=== PATIENT | male | born 1970 | race Caucasian/White ===

== ENCOUNTER 2019-03-11 11:38 | Inpatient (IN) | payer OTHER ==
--- NOTE | 2019-03-11 13:32 | PDOC ---
History of Present Illness - General Chief Complaint: Wound Stated Complaint: INFECTION ON LT ELBOW Time Seen by Provider: 03/11/19 12:44 - History of Present Illness Initial Comments: Mr. Otto is a 48 y/o male with PMH of HIV positive and asthma, presenting today with avulsion to the left elbow. Reports that he scraped his elbow on a wall two weeks ago while helping a friend move. He was seen at the [facility] a couple of times over the past two weeks where purulent discharge was drained from the wound. Reports chills diarrhea over the past couple of weeks. No fever, no shortness of breath, no chest pain, no abdominal pain, no urinary symptoms. No blood in the stool. Reports that he has been off of his ARV medications and is unsure of his CD4 count. States that he started on ARV again yesterday. Past visits show CD4 count in the low 300s. Past History - Past Medical History Allergies/Adverse Reactions: Allergies Allergy/AdvReac Type Severity Reaction Status Date / Time codeine [Codeine] AdvReac Verified 03/11/19 11:45 Penicillins AdvReac Verified 03/11/19 11:45 Home Medications: Ambulatory Orders Loratadine [Claritin] 10 mg PO DAILY 10/04/11 Albuterol Sulfate Inhaler - [Ventolin HFA Inhaler -] 1 - 2 inh PO Q6H PRN #1 inhaler 11/27/18 Bictegrav/Emtricit/Tenofov Ala [Biktarvy 50-200-25 mg Tablet] 1 tab PO DAILY # 30 tablet 11/27/18 Pravastatin Sodium 1 tab PO DAILY #30 tablet 11/27/18 Umeclidinium [place] [Incruse Ellipta] 62.5 mcg IH DAILY #1 blst.w.dev 11/27/18 Asenapine Maleate [Saphris] 10 mg SL HS #30 tab.subl 02/19/19 Benztropine Mesylate [Cogentin -] 0.5 mg PO DAILY #30 tablet 02/19/19 Sertraline HCl 100 mg PO AM #60 tablet MDD 2 02/19/19 Zolpidem Tartrate [Ambien] 10 tab PO HS PRN #15 tablet MDD 1 02/19/19 clonazePAM [Klonopin -] 0.5 mg PO BID PRN #20 tablet MDD 1 02/19/19 Clindamycin [Cleocin -] 300 mg PO TID #21 capsule 03/13/19 Anemia: No Asthma: Yes Cancer: No Cardiac Disorders: No CVA: No COPD: No CHF: No Dementia: No Diabetes: No Dialysis: No GI Disorders: No Disorders: No HTN: No Hypercholesterolemia: No Liver Disease: No Psychiatric Problems: Yes Seizures: No Thyroid Disease: No - Surgical History Appendectomy: Yes - Immunization History Immunization Up to Date: Yes - Suicide/Smoking/Psychosocial Hx Smoking Status: No Smoking History: Current every day smoker Have you smoked in the past 12 months: Yes Number of Cigarettes Smoked Daily: 3 If you are a former smoker, when did you quit?: 2014 Cigars Per Day: 0 Information on smoking cessation initiated: No 'Breaking Loose' booklet given: 02/10/12 Hx Alcohol Use: Yes Drug/Substance Use Hx: Yes (COCAINE) Substance Use Type: Alcohol, Cocaine, Marijuana Hx Substance Use Treatment: Yes (while in group home) Review of Systems - Review of Systems Comments:: ROS GENERAL/CONSTITUTIONAL: No fever. Reports chills. No weakness. HEAD, EYES, EARS, NOSE AND THROAT: No change in vision. No ear pain or discharge. No sore throat._ CARDIOVASCULAR: No chest pain or shortness of breath. RESPIRATORY: Denies cough, hemoptysis. GASTROINTESTINAL: No nausea, vomiting, or constipation. Reports mild diarrhea. GENITOURINARY: No dysuria, frequency, or change in urination. MUSCULOSKELETAL: No neck or back pain._ SKIN: Reports left elbow avulsion and erythema. NEUROLOGIC: No headache, vertigo, loss of consciousness, or change in strength/ sensation._ ENDOCRINE: No increased thirst. No abnormal weight change_ HEMATOLOGIC/LYMPHATIC: No anemia, easy bleeding, or history of blood clots._ ALLERGIC/IMMUNOLOGIC: No hives or skin allergy._ = *Physical Exam - Vital Signs Last Vital Signs Temp Pulse Resp BP Pulse Ox 98.4 F 87 18 141/66 100 03/11/19 11:47 03/11/19 11:47 03/11/19 11:47 03/11/19 11:47 03/11/19 11:47 - Physical Exam Comments: PE GENERAL: Awake, alert, and oriented to person/place/time, in no acute distress_ HEAD: No signs of trauma, normocephalic, atraumatic _ EYES: PERRLA, EOMI, sclera anicteric, conjunctiva clear_ ENT: Hearing grossly normal, nares patent, oropharynx clear without exudates. No uvular deviation. Moist mucosa_ NECK: Normal ROM, supple, no lymphadenopathy, JVD, or masses_ LUNGS: No distress, speaks in full sentences, clear to auscultation bilaterally _ HEART: Regular rate and rhythm, normal S1 and S2, no murmurs appreciated, peripheral pulses normal and equal bilaterally._ ABDOMEN: Soft, nontender, normoactive bowel sounds. No guarding, no rebound. No masses_ EXTREMITIES: Left - 1 cm x 0.5 cm abrasion to the left dorsal forearm with surrounding erythema and mild fluctuance/induration. 10 degree ROM extension deficit in left elbow. No tenderness to palpation over the rest of the LUE. No streaking. All four extremities neurovascularly intact with equal strength and sensation bilaterally. NEUROLOGICAL: Cranial nerves II through XII grossly intact. Normal speech, normal gait, no focal sensorimotor deficits _ SKIN: Warm, dry. Erythema surrounding left dorsal aspect of forearm. ED Treatment Course - LABORATORY CBC & Chemistry Diagram: 03/13/19 08:28 03/12/19 06:25 Medical Decision Making - Medical Decision Making 03/11/19 1345 48M with hx of HIV positive presenting with non-healing abrasion over left dorsal proximal forearm. Unsure of CD4 count, has not been taking ARV. Purulent discharge drained at [facility]. Obtain CBC, CMP, EKG, CXR. Plan to admit for IV antibiotics. 03/11/19 14:30 Will start on 1 g vanc and 750 mg levaquin abx. EKG shows NSR 77 bpm, no axis deviation, no ST elevation/depression, QTc 414 ms. 03/11/19 1630 XR of the left elbow shows no bone destruction and no joint effusion. Spoke with the hospitalist who agrees to admit the patient. *DC/Admit/Observation/Transfer Diagnosis at time of Disposition: Cellulitis, Non-healing wound - Discharge Dispostion Disposition: HOME Condition at time of disposition: Improved Decision to Admit order: Yes - Referrals - Patient Instructions - Post Discharge Activity
[2019-03-11] MEDS ORDERED: IBUPROFEN 600 MG TABLET (FP) PO ONE ×2 (14:13→14:47)
[2019-03-11] MEDS ORDERED: VANCOMYCIN 1 GM in D5W (PRE-DOCKED) 1,000 MG/250 ML IVPB ONE (14:30)
--- NOTE | 2019-03-11 14:38 | PDOC ---
Documentation entered by Carlotta Truong SCRIBE, acting as scribe for Nomi Nash MD. Nomi Nash MD: This documentation has been prepared by the Alexi frankel Xhesika, SCRIBE, under my direction and personally reviewed by me in its entirety. I confirm that the documentation accurately reflects all work, treatment, procedures, and medical decision making performed by me. Attending Attestation - Resident Resident Name: Dariusz Fiore - ED Attending Attestation I have performed the following: I have examined & evaluated the patient, The case was reviewed & discussed with the resident, I agree w/resident's findings & plan - HPI HPI: 03/11/19 14:19 The patient is a 48 year old male with a significant PMH of HIV (last CD4 bordering 400), asthma, etoh abuse and cocaine use who presents to the emergency department with 2 weeks of non healing L forearm abrasion. Patient notes he scraped his elbow on the wall while helping a friend move about 2 weeks ago. Pt was seen at [facility] [place] 2d ago where he had abscess I+D and IV abx, they recommended admission but he signed out AMA. He did not scrap picker the antibiotic rx prescribed to him. Pt presented to [facility] today for persistent swelling and chills. At [facility], purulence was noted so he was referred to ED. Patient denies any numbness or tingling of the arm. The patient denies chest pain, shortness of breath, headache and dizziness. Denies fever, cough, nausea, vomiting, diarrhea and constipation. Denies dysuria , frequency, urgency and hematuria. Allergies: codeine, penicillin (unclear reaction) Social history: etoh abuse and cocaine use - Physicial Exam PE: 03/11/19 14:35 Afebrile, vital signs normal Generally well-appearing, lying in stretcher Left upper extremity: There is a superficial 2 cm abrasion dorsally just distal to the elbow, there is soft tissue swelling with warmth and erythema and induration surrounding the dorsal aspect of the elbow, no obvious joint effusion , full range of motion. Healed incision and drainage site on the lateral left elbow, no active drainage or bleeding. Neurovascularly intact distally, full strength. - Medical Decision Making 03/11/19 14:36 48-year-old male HIV noncompliant with medications and immunocompromised presents with left upper extremity cellulitis secondary to infected abrasion. Status post incision and drainage of abscess, incompletely treated with antibiotics. No evidence of sepsis or septic joint at this time. Labs, cultures Elbow x-ray IV antibiotics Admission Heart Score/ECG Review #1 ECG reviewed & interpreted by me at: 13:39 General ECG Interpretation: Sinus Rhythm, Normal Rate (77), Normal Intervals ( qtc 414), No acute ischemic changes
[2019-03-11] MEDS ORDERED: VANCOMYCIN 1 GRAM (PRE-DOCKED) 1,000 MG/250 ML BAG IVPB ONE (14:47)
[2019-03-11 14:56] LABS: BASO % 0.4 % (0-2.0); HEMATOCRIT 38.8 % (35.4-49); HEMOGLOBIN 13.2 GM/dL (11.7-16.9); LYMPH % 36.1 % (8-40); MEAN CELL VOLUME 88.2 fl (80-96); MEAN PLT VOLUME 7.6 fl (7.5-11.1); MONO % 9.1 % (3.8-10.2); NEUT % 50.4 % (42.8-82.8); PLATELET COUNT 249 K/MM3 (134-434); RDW 12.6 % (11.9-15.9); WHITE BLOOD COUNT 6.9 K/mm3 (4.0-10.0)
[2019-03-11 15:26] LABS: ALBUMIN 2.6 g/dl (3.4-5.0); BILIRUBIN,TOTAL 0.2 mg/dL (0.2-1); CALCIUM 7.9 mg/dL (8.5-10.1); CREATININE 0.7 mg/dL (0.55-1.3); POTASSIUM 4.3 mmol/L (3.5-5.1); TOT PROT 6.2 g/dl (6.4-8.2)
--- NOTE | 2019-03-11 16:02 | EKG ---
Test Reason : Blood Pressure : / mmHG Vent. Rate : 077 BPM Atrial Rate : 077 BPM P-R Int : 140 ms QRS Dur : 084 ms QT Int : 366 ms P-R-T Axes : 075 061 047 degrees QTc Int : 414 ms POOR DATA QUALITY, INTERPRETATION MAY BE ADVERSELY AFFECTED NORMAL SINUS RHYTHM NORMAL ECG WHEN COMPARED WITH ECG OF 11-OCT-2017 10:01, NO SIGNIFICANT CHANGE WAS FOUND Confirmed by MD RICHIE, MIHAI ([id number]) on 03/11/2019 4:01:48 PM Referred By: Confirmed By:MIHAI QUIROZ MD
[2019-03-11] MEDS ORDERED: ALBUTEROL SO4 8 GM HFA INHALER IH PRN (17:00)
--- NOTE | 2019-03-11 17:04 | HP ---
CHIEF COMPLAINT: LUE swelling PCP:[facility] HISTORY OF PRESENT ILLNESS: 48 y/o male with PMH of HIV (last cd4 352 hasnt take his HAART medications in 3 weeks), asthma, COPD, extensive cocaine and alcohol abuse presents to the ED with complaints of LUE swelling and pain- patient states that he scraped his elbow about 3-4 weeks ago and then hit it 2 weeks ago and since then has been having off and on pain with swelling in addition to subjective fevers and chills. Patient states that he went to [facility] about a week and a half ago where he got a dose of IV abx (doesn't know which type) but left AMA before being admitted; he then went to the [facility] and they did an I and D two days ago- however he went back today because he was still having some subjective fevers and chills and he was sent here; he denies any nausea/vomiting /diarrhea no sick contacts or recent travel ER course was notable for: (1)vitals and labs wnl (2) left elbow XRAY pending (3)given levaquin/vanco; Recent Travel: denies PAST MEDICAL HISTORY: see above PAST SURGICAL HISTORY: appendectomy; inguinal hernia repair in childhood Social History: Smoking: current everyday smoker 1ppd Alcohol:everyday drinker; drink a 12 pack ppd never gone through withdrawals or been hospitalized Drugs: cocaine and marijuana user- daily Family History: Allergies codeine [Codeine] Adverse Reaction (Verified 03/11/19 11:45) just knows that he is allergic to it Penicillins Adverse Reaction (Verified 03/11/19 11:45) pt states he developed the allergy as a child and just knows he got very sick HOME MEDICATIONS: Home Medications Medication Instructions Recorded Loratadine [Claritin] 10 mg PO DAILY 10/04/11 Albuterol Sulfate Inhaler - 1 - 2 inh PO Q6H PRN #1 inhaler 11/27/18 [Ventolin HFA Inhaler -] Bictegrav/Emtricit/Tenofov Ala 1 tab PO DAILY #30 tablet 11/27/18 [Biktarvy 50-200-25 mg Tablet] Pravastatin Sodium 1 tab PO DAILY #30 tablet 11/27/18 Umeclidinium [place] [Incruse 62.5 mcg IH DAILY #1 blst.w.dev 11/27/18 Ellipta] Asenapine Maleate [Saphris] 10 mg SL HS #30 tab.subl 02/19/19 Benztropine Mesylate [Cogentin -] 0.5 mg PO DAILY #30 tablet 02/19/19 Sertraline HCl 100 mg PO AM #60 tablet MDD 2 02/19/19 Zolpidem Tartrate [Ambien] 10 tab PO HS PRN #15 tablet MDD 1 02/19/19 clonazePAM [Klonopin -] 0.5 mg PO BID PRN #20 tablet MDD 1 02/19/19 REVIEW OF SYSTEMS CONSTITUTIONAL: Present: fevers, chills Absent: , diaphoresis, generalized weakness, malaise, loss of appetite, weight change HEENT: Absent: rhinorrhea, nasal congestion, throat pain, throat swelling, difficulty swallowing, mouth swelling, ear pain, eye pain, visual changes CARDIOVASCULAR: Absent: chest pain, syncope, palpitations, irregular heart rate, lightheadedness , peripheral edema RESPIRATORY: Absent: cough, shortness of breath, dyspnea with exertion, orthopnea, wheezing, stridor, hemoptysis GASTROINTESTINAL: Absent: abdominal pain, abdominal distension, nausea, vomiting, diarrhea, constipation, melena, hematochezia GENITOURINARY: Absent: dysuria, frequency, urgency, hesitancy, hematuria, flank pain, genital pain MUSCULOSKELETAL: Present: joint swelling, myalgia Absent: arthralgia, back pain, neck pain SKIN: Absent: rash, itching, pallor HEMATOLOGIC/IMMUNOLOGIC: Absent: easy bleeding, easy bruising, lymphadenopathy, frequent infections ENDOCRINE: Absent: unexplained weight gain, unexplained weight loss, heat intolerance, cold intolerance NEUROLOGIC: Absent: headache, focal weakness or paresthesias, dizziness, unsteady gait, seizure, mental status changes, bladder or bowel incontinence PSYCHIATRIC: Absent: anxiety, depression, suicidal or homicidal ideation, hallucinations. PHYSICAL EXAMINATION Vital Signs - 24 hr 03/11/19 11:47 Temperature 98.4 F Pulse Rate 87 Respiratory 18 Rate Blood Pressure 141/66 O2 Sat by Pulse 100 Oximetry (%) GENERAL: Awake, alert, and fully oriented, in no acute distress. EYES: PEERLA: EOMI; no scleral icterus NECK: no JVD; no lymphadenopathy. LUNGS:CTA B/L; no rales, rhonchi or wheezing HEART: Regular rate and rhythm, normal S1 and S2 without murmur, rub or gallop. ABDOMEN: Soft, nontender, not distended, normoactive bowel sounds, no guarding, no rebound, no masses. No hepatomegaly or splenomegaly. MUSCULOSKELETAL: Left upper extremity elbow swelling; erythematous slightly tender to touch EXTREMITIES: warm;well-perfused no clubbing/cyanosis or edema NEUROLOGICAL: Cranial nerves II-XII intact. Normal speech. Normal gait. PSYCHIATRIC: Cooperative. Good eye contact. Appropriate mood and affect. SKIN: Warm, dry, normal turgor, no rashes or lesions noted, normal capillary refill. Laboratory Results - last 24 hr 03/11/19 03/11/19 14:40 14:40 WBC 6.9 RBC 4.40 Hgb 13.2 Hct 38.8 MCV 88.2 MCH 30.0 MCHC 34.0 RDW 12.6 Plt Count 249 MPV 7.6 Absolute Neuts (auto) 3.5 Neutrophils % 50.4 D Lymphocytes % 36.1 D Monocytes % 9.1 Eosinophils % 4.0 D Basophils % 0.4 Nucleated RBC % 0 Sodium 142 Potassium 4.3 Chloride 110 H Carbon Dioxide 28 Anion Gap 5 L BUN 10.0 Creatinine 0.7 Est GFR (CKD-EPI)AfAm 128.43 Est GFR (CKD-EPI)NonAf 110.81 Random Glucose 120 H Calcium 7.9 L Total Bilirubin 0.2 AST 24 ALT 37 Alkaline Phosphatase 86 Total Protein 6.2 L Albumin 2.6 L ASSESSMENT/PLAN: 48 y/o male with PMH of HIV (last cd4 352 hasnt take his HAART medications in 3 weeks), asthma, COPD, extensive cocaine and alcohol abuse presents to the ED with complaints of LUE swelling and pain- #LUE swelling and ? cellulitis patient received vanc/levaquin in the ED -elbow XRAY pending -ID consulted -ortho cosulted -tylenol PRN for pain -monitor hemodynamics #COPD not in acute exacerbation currently -will c/w home inhalers -maintain o2 sat between 88-92% #HIV -patients last CD4 was 352 -will continue with HAART therapy -ID consulted #HLD -c/w statin #Bipolar Disorder -will c/w psych medications #Alcohol use patient is not currently withdrawing -will monitor CIWA F/E/N not on fluids monitor electrolytes sodium-controlled diet dvt ppx; scds Problem List - Problem (1) Cellulitis of left upper extremity Code(s): L03.114 - CELLULITIS OF LEFT UPPER LIMB (2) AIDS Code(s): B20 - HUMAN IMMUNODEFICIENCY VIRUS [HIV] DISEASE (3) Asthma Code(s): J45.909 - UNSPECIFIED ASTHMA, UNCOMPLICATED (4) Mental health disorder Code(s): F99 - MENTAL DISORDER, NOT OTHERWISE SPECIFIED Visit type - Emergency Visit Emergency Visit: Yes ED Registration Date: 03/11/19 Care time: The patient presented to the Emergency Department on the above date and was hospitalized for further evaluation of their emergent condition. - New Patient This patient is new to me today: Yes Date on this admission: 03/11/19 - Critical Care Critical Care patient: No ATTENDING PHYSICIAN STATEMENT I saw and evaluated the patient. I reviewed the resident's note and discussed the case with the resident. I agree with the resident's findings and plan as documented. SUBJECTIVE: OBJECTIVE: ASSESSMENT AND PLAN:
--- NOTE | 2019-03-11 17:56 | PN ---
Teaching Attending Note Name of Resident: Emmanuelle Peters ATTENDING PHYSICIAN STATEMENT I saw and evaluated the patient. I reviewed the resident's note and discussed the case with the resident. I agree with the resident's findings and plan as documented. SUBJECTIVE: Complains of pain dorsal aspect of L Arm including elbow, with pain on flexion at elbow joint. Subjective fevers/chills. OBJECTIVE: Afebrile, Hemodnamically stable. Last Vital Signs Temp Pulse Resp BP Pulse Ox 98.4 F 87 18 141/66 99 03/11/19 11:47 03/11/19 11:47 03/11/19 11:47 03/11/19 11:47 03/11/19 15:30 HEENT - Atramatic, Normocephalic Heart - S1, S2, SM Lungs -Clear to auscultation Abdomen - Soft, non-tender. Bowel Sounds normal. Extremities - LEs no edema, no calf tenderness. MS - LUE - dorsal erythema, site of prior I and D draining pus, some elbow tenderness, good ROM about elbow joint. Neuro - AAO x 3. Tone/Power normal all 4 extremities. Laboratory Results - last 24 hr 03/11/19 03/11/19 14:40 14:40 WBC 6.9 RBC 4.40 Hgb 13.2 Hct 38.8 MCV 88.2 MCH 30.0 MCHC 34.0 RDW 12.6 Plt Count 249 MPV 7.6 Absolute Neuts (auto) 3.5 Neutrophils % 50.4 D Lymphocytes % 36.1 D Monocytes % 9.1 Eosinophils % 4.0 D Basophils % 0.4 Nucleated RBC % 0 Sodium 142 Potassium 4.3 Chloride 110 H Carbon Dioxide 28 Anion Gap 5 L BUN 10.0 Creatinine 0.7 Est GFR (CKD-EPI)AfAm 128.43 Est GFR (CKD-EPI)NonAf 110.81 Random Glucose 120 H Calcium 7.9 L Total Bilirubin 0.2 AST 24 ALT 37 Alkaline Phosphatase 86 Total Protein 6.2 L Albumin 2.6 L Current Medications Generic Name Dose Route Start Last Admin Trade Name Freq PRN Reason Stop Dose Admin Acetaminophen 650 mg 03/11/19 16:51 Tylenol - PO Q4H PRN PAIN LEVEL 4 - 6 Albuterol Sulfate 1 - 2 puff 03/11/19 17:00 Ventolin Hfa Inhaler - IH Q6H PRN ASTHMA Atorvastatin Calcium 10 mg 03/11/19 22:00 Lipitor - PO HS DONAVAN Benztropine Mesylate 0.5 mg 03/12/19 10:00 Cogentin - PO DAILY DONAVAN Clonazepam 0.5 mg 03/11/19 17:00 Klonopin - PO BID PRN ANXIETY Loratadine 10 mg 03/12/19 10:00 Claritin - PO DAILY DONAVAN Non-Formulary Medication 10 mg 03/11/19 22:00 Asenapine Maleate [Saphris] SL HS DONAVAN Non-Formulary Medication 1 tab 03/12/19 10:00 Bictegrav/Emtricit/Tenofov Ala PO DAILY DONAVAN Sertraline HCl 100 mg 03/12/19 07:00 Zoloft - PO AM DONAVAN Tiotropium [place] 2 puff 03/12/19 10:00 Spiriva Respimat IH DAILY DONAVAN Zolpidem Tartrate 10 mg 03/11/19 22:00 Ambien - PO HS PRN INSOMNIA Home Medications Medication Instructions Recorded Loratadine [Claritin] 10 mg PO DAILY 10/04/11 Albuterol Sulfate Inhaler - 1 - 2 inh PO Q6H PRN #1 inhaler 11/27/18 [Ventolin HFA Inhaler -] Bictegrav/Emtricit/Tenofov [place] 1 tab PO DAILY #30 tablet 11/27/18 [Biktarvy 50-200-25 mg Tablet] Pravastatin Sodium 1 tab PO DAILY #30 tablet 11/27/18 Umeclidinium [place] [Incruse 62.5 mcg IH DAILY #1 blst.w.dev 11/27/18 Ellipta] Asenapine Maleate [Saphris] 10 mg SL HS #30 tab.subl 02/19/19 Benztropine Mesylate [Cogentin -] 0.5 mg PO DAILY #30 tablet 02/19/19 Sertraline HCl 100 mg PO AM #60 tablet MDD 2 02/19/19 Zolpidem Tartrate [Ambien] 10 tab PO HS PRN #15 tablet MDD 1 02/19/19 clonazePAM [Klonopin -] 0.5 mg PO BID PRN #20 tablet MDD 1 02/19/19 ASSESSMENT AND PLAN: 48 year old male with history of HIV poorly compliant with HAART, Asthma/COPD, Active smoker, Polysubstance Abuse (Alcohol/Cocaine), presents with LUE/Elbow swelling/erythema/tenderness with associated subjective fevers/chills. No nausea /vomiting. Prior I and D at [facility] 2 days ago, comes to [facility] for worsening symptoms. 1. L Elbow/LUE Cellulitis Reports prior I and D 2/ ago at [facility] ED Will cover with Levofloxacin/Vancomycin ID and Orthopedics consulted [facility] - given immunocompromised state and tenderness on palpation of elbow, opinion re: joint involvement will be appreciated). 2. HIV (poorly compliant with HAART ID consulted 3. COPD - Stable, no evidence of acute exacerbation. Albuterol PRN. Continue Incruse Ellipta. 4. HLD - continue Statin. 5. Bipolar Disorder - continue Clonazepam, Sertraline, Saphris, Benztropine, 6. Polysusbstance Abuse (Alcohol/cocaine) No evidence of acute alcohol withdrawal. 7. HLD - continue Statin. 8. Smoker - counselled. Declines Nicotine patch. DVT Px - Heparin SQ
[2019-03-11] MEDS: ACETAMINOPHEN 325 MG TABLET (FP) PO PRN (18:33)
[2019-03-11 20:34] VITALS: BMI 39.1
[2019-03-11] MEDS ORDERED: ZOLPIDEM TARTRATE 5 MG TABLET PO PRN (22:00)
[2019-03-11] MEDS ORDERED: ASENAPINE MALEATE 10 MG SL SCH (22:00)
[2019-03-11] MEDS: HEPARIN NA (PORCINE) 5,000 UNITS/ML 1ML VIAL SQ SCH (22:04)
[2019-03-11] MEDS: ATORVASTATIN CA 10 MG TABLET (FP) PO SCH (22:04)
[2019-03-12] MEDS: SERTRALINE HCL 50 MG TABLET (FP) PO SCH (06:57)
[2019-03-12] MEDS: HEPARIN NA (PORCINE) 5,000 UNITS/ML 1ML VIAL SQ SCH ×3 (06:57→22:29)
[2019-03-12 07:34] LABS: BASO % 0.4 % (0-2.0); EOS % 3.8 % (0-4.5); HEMOGLOBIN 14.1 GM/dL (11.7-16.9); LYMPH % 30.1 % (8-40); MCH 30.2 pg (25.7-33.7); MCHC 34.3 g/dl (32.0-35.9); MONO % 8.3 % (3.8-10.2); NEUT % 57.4 % (42.8-82.8); PLATELET COUNT 274 K/MM3 (134-434); RBC 4.66 M/mm3 (4.00-5.60); RDW 12.5 % (11.9-15.9); WHITE BLOOD COUNT 7.6 K/mm3 (4.0-10.0)
[2019-03-12 07:56] LABS: ALBUMIN 2.5 g/dl (3.4-5.0); BILIRUBIN,TOTAL 0.3 mg/dL (0.2-1); BLOOD UREA NITROGEN 11.7 mg/dL (7-18); CALCIUM 8.1 mg/dL (8.5-10.1); CREATININE 0.7 mg/dL (0.55-1.3); MAGNESIUM 2.2 mg/dL (1.8-2.4); POTASSIUM 4.1 mmol/L (3.5-5.1); TOT PROT 6.4 g/dl (6.4-8.2)
[2019-03-12] MEDS ORDERED: PT OWN MED DRAWER 7, Y5N ONE (09:49)
[2019-03-12] MEDS ORDERED: ALBUTEROL SO4 8 GM HFA INHALER IH PRN (09:56)
[2019-03-12] MEDS: LORATADINE 10 MG TABLET PO SCH (09:57)
[2019-03-12] MEDS ORDERED: PATIENT'S OWN MEDICATION (NON-FORMULARY) (Bictegrav/Emtricit/Tenofov Ala 1 TAB) PO SCH (10:00)
--- NOTE | 2019-03-12 10:49 | PN ---
Progress Note (short form) - Note Progress Note: ID consult dictated imp/reccd 48 yo man history of polysubstance abuse, HIV- cd4 352-recently stopped meds, resumed recently seen in ER twice at [facility] - first time offered admission, left AMA, he was there on Sunday when he reports they did an Incision and Drainage and ordered antibiotics po which he didnot hop picker he came to [facility] yesterday and was sent to the ED reports tetanus vaccination at [facility] ED subjective fever and chills pen allergic reports 50 % improvement with antibiotics overnight soft tissue infection of the left elbow- no signs of joint involvement, no fluctuance to suggest residual abscess would continue iv vancomycin 1500 mg q12h with plans to switch to po clindamycin 300 tid when ready for discharge HIV- continue biktarvy pen allergy noted- Problem List - Problems (1) Cellulitis Code(s): L03.90 - CELLULITIS, UNSPECIFIED Qualifiers: Site of cellulitis: extremity Site of cellulitis of extremity: upper extremity Laterality: left Qualified Code(s): L03.114 - Cellulitis of left upper limb (2) HIV (human immunodeficiency virus infection) Code(s): B20 - HUMAN IMMUNODEFICIENCY VIRUS [HIV] DISEASE (3) Penicillin allergy Code(s): Z88.0 - ALLERGY STATUS TO PENICILLIN
[2019-03-12] MEDS ORDERED: VANCOMYCIN HCL 1,500 MG in DEXTROSE 5%-WATER - 250 ML IVPB SCH ×2 (11:00→11:15)
[2019-03-12] MEDS ORDERED: VANCOMYCIN HCL 1,500 MG in DEXTROSE 5%-WATER - 500 ML IVPB SCH (11:06)
--- NOTE | 2019-03-12 13:50 | PN ---
Teaching Attending Note Name of Resident: Fabricio Dominguez ATTENDING PHYSICIAN STATEMENT I saw and evaluated the patient. I reviewed the resident's note and discussed the case with the resident. I agree with the resident's findings and plan as documented. SUBJECTIVE:Feels improved still c/o pain and tenderness OBJECTIVE: Vital Signs Temperature 98.6 F 03/12/19 09:30 Pulse Rate 84 03/12/19 09:30 Respiratory Rate 18 03/12/19 09:30 Blood Pressure 118/62 03/12/19 09:30 O2 Sat by Pulse Oximetry (%) 98 03/11/19 20:43 Young man not in distress HEENT: Mm moist no anemia NECK: No JVd no Bruit CHEST: CTA B/L CVS: s1S2 R' ABD: Obese non tender EXT: Left elbow swelling redness and erythema, supperfical ulcer no purulent discharge left Elbow joints movement are un restricted. MARINA PORTER: Non focal CBC, BMP 03/12/19 06:25 03/12/19 06:25 Active Medications Acetaminophen (Tylenol -) 650 mg PO Q4H PRN PRN Reason: PAIN LEVEL 4 - 6 Last Admin: 03/11/19 18:33 Dose: 650 mg Albuterol Sulfate (Ventolin Hfa Inhaler -) 1 puff IH Q6H PRN PRN Reason: ASTHMA Atorvastatin Calcium (Lipitor -) 10 mg PO HS [facility] Last Admin: 03/11/19 22:04 Dose: 10 mg Benztropine Mesylate (Cogentin -) 0.5 mg PO DAILY [facility] Clonazepam (Klonopin -) 0.5 mg PO BID PRN PRN Reason: ANXIETY Heparin Sodium (Porcine) (Heparin -) 5,000 unit SQ TID [facility] Last Admin: 03/12/19 06:57 Dose: 5,000 unit Vancomycin HCl 1,500 mg/ (Dextrose) 500 mls @ 125 mls/hr IVPB Q12H [facility]; Protocol Loratadine (Claritin -) 10 mg PO DAILY [facility] Last Admin: 03/12/19 09:57 Dose: 10 mg Non-Formulary Medication (Asenapine Maleate [Saphris]) 10 mg SL HS [facility] Non-Formulary Medication (Bictegrav/Emtricit/Tenofov Ala) 1 tab PO DAILY [facility] Sertraline HCl (Zoloft -) 100 mg PO AM [facility] Last Admin: 03/12/19 06:57 Dose: 100 mg Tiotropium [place] (Spiriva Respimat) 2 puff IH DAILY [facility] Zolpidem Tartrate (Ambien -) 10 mg PO HS PRN PRN Reason: INSOMNIA ASSESSMENT AND PLAN:48 year old male with history of HIV poorly compliant with HAART, Asthma/COPD, Active smoker, Polysubstance Abuse (Alcohol/Cocaine), presents with LUE/Elbow swelling/erythema/tenderness with associated subjective fevers/chills. No nausea/vomiting. Prior I and D at [facility] 2 days ago, comes to [facility] for worsening symptoms. Problem List - Problems (1) Cellulitis of left upper extremity Assessment/Plan: Non purulent Cellulitis as per Facilities Clerk recent culture at [facility] Grew few strept will cont Vancomycin can be switch to clinda/Bactrim once Septic arthritis is R/O by ortho. Code(s): L03.114 - CELLULITIS OF LEFT UPPER LIMB (2) HIV (human immunodeficiency virus infection) Assessment/Plan: Non complint last CD4 352 Code(s): B20 - HUMAN IMMUNODEFICIENCY VIRUS [HIV] DISEASE (3) Asthma Assessment/Plan: Cont current meds Code(s): J45.909 - UNSPECIFIED ASTHMA, UNCOMPLICATED (4) Bipolar disorder Assessment/Plan: Resume home meds Code(s): F31.9 - BIPOLAR DISORDER, UNSPECIFIED (5) Substance abuse Assessment/Plan: PSA active cocaine and ETOH observe closely for DTs add Thiamine Folic acid Code(s): F19.10 - OTHER PSYCHOACTIVE SUBSTANCE ABUSE, UNCOMPLICATED
--- NOTE | 2019-03-12 16:08 | CONS ---
INFECTIOUS DISEASE CONSULTATION DATE OF CONSULTATION: 03/12/2019 This is a 48-year-old man, extremely poor historian. He does not want to talk. He did not want to be examined. Briefly, this is a 48-year-old man with a history of polysubstance abuse, HIV with CD4 count of 352, recently off his medications for about a month and just resumed. He injured his left elbow. He scraped it several weeks ago. He was seen twice in the ER at [facility]. The first time, he was offered admission; he left AMA. He was there on Sunday, when he reports they did an incision and drainage of the area, and they ordered oral antibiotics for him. He did not pick them up. Instead, he went to the [facility] yesterday and was advised hospital admission. He reports he had a tetanus vaccine at the [facility] Emergency Room. He reports subjective fever and chills. He reports a PENICILLIN allergy that is unclear, apparently as a child. His mother told him he would if he got PENICILLIN. He reports 50% improvement with antibiotics overnight. He got vancomycin and Levaquin. PAST MEDICAL HISTORY: Notable for a history of asthma, COPD. He has polysubstance use with cocaine and alcohol as well as marijuana. He has an extensive psychiatric history as well and is on multiple medications. SURGICAL HISTORY: Appendectomy and inguinal hernia repair. SOCIAL HISTORY: He is a current everyday smoker. He is an everyday alcohol user, and he uses cocaine and marijuana. He lives alone in the community. He has a pet dog. It is a Dobermann Pinscher. FAMILY HISTORY: Notable for codeine use. He denies injection use. MEDICATIONS: Claritin, Ventolin inhaler, BIKTARVY, pravastatin, Ellipta, Saphris, Cogentin, sertraline, Ambien, and Klonopin. REVIEW OF SYSTEMS: He has had subjective fevers and chills. PHYSICAL EXAMINATION: General: He is a very reluctantly cooperative man. Vital Signs: His temperature is 98.6. He has had no fever since admission. Pulse of 84, blood pressure 118/62. Respiratory rate is 18. He weighs 116 kg. HEENT: He is normocephalic. Eyes are anicteric. Neck: Supple. Lungs: Clear to auscultation. Heart: Regular rate and rhythm. Abdomen: There is no organomegaly. Extremities: He has multiple tattoos of his arms. His left arm: He has an open abrasion. There is no purulence from the site. He has some diffuse erythema surrounding it, which he reports has improved. He has full range of motion of the elbow. LABORATORY DATA: Labs are notable for white count of 7.6, hemoglobin 14, platelets are 247. BUN is 11 and creatinine 0.7 with normal LFTs. Blood cultures are pending. In summary, this is a 48-year-old man with: 1. Cellulitis of his left arm. No signs of joint involvement. No fluctuance to suggest residual abscess. He is status post incision and drainage at [facility] Emergency Room on Sunday. I would continue IV vancomycin 1500 mg q.12 based on his weight, with plans to switch to oral clindamycin 300 t.i.d. when he is ready for discharge. I will try to contact [place] to see if a culture was sent from the emergency room. 2. Human immunodeficiency virus. Would continue with BIKTARVY. 3. PENICILLIN allergy noted. He should follow up at the [facility] after discharge. KLARISSA BROWN M.D. [id number]
[2019-03-12] MEDS: BENZTROPINE MESYLATE 0.5 MG TABLET (FP) PO SCH (17:01)
--- NOTE | 2019-03-12 17:08 | PN ---
Physical Exam: SUBJECTIVE: Patient seen and examined at the bedside. No acute events overnight. OBJECTIVE: Vital Signs Period Temp Pulse Resp BP Sys/Cross Pulse Ox Last 24 Hr 97.7 F-99.1 F 82-95 18-18 118-141/62-97 98 GENERAL: The patient is awake, alert, and fully oriented, in no acute distress. HEAD: Normal with no signs of trauma. EYES: PERRL, extraocular movements intact, sclera anicteric, conjunctiva clear. No ptosis. ENT: Ears normal, nares patent, oropharynx clear without exudates, moist mucous membranes. NECK: supple. LUNGS: Breath sounds equal, clear to auscultation bilaterally, no wheezes, no crackles, no accessory muscle use. HEART: Regular rate and rhythm, S1, S2 without murmur, rub or gallop. ABDOMEN: Soft, nontender, nondistended, no guarding, no rebound, no masses. EXTREMITIES: warm, well-perfused, no edema. NEUROLOGICAL: Cranial nerves II through XII grossly intact. Normal speech, gait not observed. PSYCH: slightly irritated SKIN: Warm, dry, tattoes, no rashes or lesions noted Laboratory Results - last 24 hr 03/12/19 03/12/19 06:25 06:25 WBC 7.6 RBC 4.66 Hgb 14.1 Hct 41.0 MCV 88.0 MCH 30.2 MCHC 34.3 RDW 12.5 Plt Count 274 MPV 8.0 Absolute Neuts (auto) 4.4 Neutrophils % 57.4 Lymphocytes % 30.1 Monocytes % 8.3 Eosinophils % 3.8 Basophils % 0.4 Nucleated RBC % 0 Sodium 141 Potassium 4.1 Chloride 109 H Carbon Dioxide 24 Anion Gap 8 BUN 11.7 Creatinine 0.7 Est GFR (CKD-EPI)AfAm 128.43 Est GFR (CKD-EPI)NonAf 110.81 Random Glucose 96 Calcium 8.1 L Magnesium 2.2 Total Bilirubin 0.3 AST 26 ALT 42 Alkaline Phosphatase 84 Total Protein 6.4 Albumin 2.5 L Active Medications Generic Name Dose Route Start Last Admin Trade Name Freq PRN Reason Stop Dose Admin Acetaminophen 650 mg 03/11/19 16:51 03/11/19 18:33 Tylenol - PO 650 mg Q4H PRN Administration PAIN LEVEL 4 - 6 Albuterol Sulfate 1 puff 03/12/19 09:56 Ventolin Hfa Inhaler - IH Q6H PRN ASTHMA Atorvastatin Calcium 10 mg 03/11/19 22:00 03/11/19 22:04 Lipitor - PO 10 mg HS [facility] Administration Benztropine Mesylate 0.5 mg 03/12/19 10:00 03/12/19 17:01 Cogentin - PO 0.5 mg DAILY [facility] Administration Clonazepam 0.5 mg 03/11/19 17:00 Klonopin - PO BID PRN ANXIETY Heparin Sodium (Porcine) 5,000 unit 03/11/19 22:00 03/12/19 16:30 Heparin - SQ Not Given TID [facility] Vancomycin HCl 1,500 mg/ 500 mls @ 125 mls/hr 03/12/19 11:06 03/12/19 17:02 Dextrose IVPB 125 mls/hr Q12H [facility] Administration Protocol Loratadine 10 mg 03/12/19 10:00 03/12/19 09:57 Claritin - PO 10 mg DAILY [facility] Administration Non-Formulary Medication 10 mg 03/11/19 22:00 Asenapine Maleate [Saphris] SL HS [facility] Non-Formulary Medication 1 tab 03/12/19 10:00 Bictegrav/Emtricit/Tenofov Ala PO DAILY [facility] Sertraline HCl 100 mg 03/12/19 07:00 03/12/19 06:57 Zoloft - PO 100 mg AM [facility] Administration Tiotropium [place] 2 puff 03/12/19 10:00 Spiriva Respimat IH DAILY [facility] Zolpidem Tartrate 10 mg 03/11/19 22:00 Ambien - PO HS PRN INSOMNIA ASSESSMENT/PLAN: 48 y/o man w a PMH of polysubstance abuse, HIV (cd4 352-recently stopped meds, resumed recently) seen in ER twice at [facility], left AMA, after an Incision and Drainage and ordered antibiotics PO which he didnot poultry picker and he came to the [facility] yesterday and was sent to the ED. #Left elbow cellulitis -erythematous, no effusions on Xray or fractures - Dr Thompson started IV vanco 1500 BID and plan to switch to PO [place] 300TID or Bactrim as O/p. - Ortho (Dr. Gamboa)- consulted awaiting recs #HIV -On biktarvy - CD4 352. #?COPD -on spiriva respimat #Bipolar depression - on ambien, zoloft, cloniden, benztropine. Visit type - Emergency Visit Emergency Visit: Yes ED Registration Date: 03/11/19 Care time: The patient presented to the Emergency Department on the above date and was hospitalized for further evaluation of their emergent condition. - New Patient This patient is new to me today: No - Critical Care Critical Care patient: No - Discharge Referral Referred to [facility] Med P.C[facility] No ATTENDING PHYSICIAN STATEMENT I saw and evaluated the patient. I reviewed the resident's note and discussed the case with the resident. I agree with the resident's findings and plan as documented. SUBJECTIVE: OBJECTIVE: ASSESSMENT AND PLAN:
[2019-03-12] MEDS: VANCOMYCIN HCL 1,500 MG in DEXTROSE 5%-WATER - 500 ML IVPB SCH (17:45)
[2019-03-12] MEDS: TIOTROPIUM BROMIDE 2.5 MCG (SPIRIVA) RESPIMAT INHALER IH SCH (17:50)
[2019-03-12 19:30] LABS: METHADONE, UR NEGATIVE ng/ml (CUTOFF=300); OPIATES, URI NEGATIVE ng/ml (CUTOFF=300); PHENCYCLIDINE,URINE NEGATIVE ng/ml (CUTOFF=25); URINE AMPHETAMINES NEGATIVE ng/ml (CUTOFF=500); URINE BARBITURATES NEGATIVE ng/ml (CUTOFF=200); URINE BENZODIAZEPINES NEGATIVE ng/ml (CUTOFF=200)
[2019-03-12 19:39] LABS: COCAINE, UR POSITIVE ng/ml (CUTOFF=300)
[2019-03-12] MEDS: ACETAMINOPHEN 325 MG TABLET (FP) PO PRN (22:28)
[2019-03-12] MEDS: clonazePAM 0.5 MG TABLET PO PRN (22:28)
[2019-03-12] MEDS: ATORVASTATIN CA 10 MG TABLET (FP) PO SCH (22:29)
[2019-03-13] MEDS: VANCOMYCIN HCL 1,500 MG in DEXTROSE 5%-WATER - 500 ML IVPB SCH (06:25)
[2019-03-13] MEDS: HEPARIN NA (PORCINE) 5,000 UNITS/ML 1ML VIAL SQ SCH (06:33)
[2019-03-13 07:53] VITALS: TEMP 98.2
--- NOTE | 2019-03-13 07:55 | PN ---
Teaching Attending Note Name of Resident: Fabricio Dominguez ATTENDING PHYSICIAN STATEMENT I saw and evaluated the patient. I reviewed the resident's note and discussed the case with the resident. I agree with the resident's findings and plan as documented. SUBJECTIVE: OBJECTIVE: Vital Signs Temperature 98.2 F 03/13/19 06:00 Pulse Rate 96 H 03/13/19 06:00 Respiratory Rate 20 03/13/19 06:00 Blood Pressure 133/95 03/13/19 06:00 O2 Sat by Pulse Oximetry (%) 98 03/12/19 21:00 oung man not in distress HEENT: Mm moist no anemia NECK: No JVd no Bruit CHEST: CTA B/L CVS: s1S2 R' ABD: Obese non tender EXT: Left elbow swelling redness and erythema, supperfical ulcer no purulent discharge left Elbow joints movement are un restricted. RADIATION ENGINEER: Non focal CBC, BMP 03/13/19 08:28 03/12/19 06:25 ASSESSMENT AND PLAN:48 year old male with history of HIV poorly compliant with ARV, Asthma/COPD, Active smoker, Polysubstance Abuse (Alcohol/Cocaine), presents with LUE/Elbow swelling/erythema/tenderness with associated subjective fevers/chills. Problem List - Problems (1) Cellulitis of left upper extremity Assessment/Plan: Non purulent Cellulitis as per Crocheter recent culture at [facility] Grew few strept will cont Vancomycin can be switch to clindaMYCINE Code(s): L03.114 - CELLULITIS OF LEFT UPPER LIMB (2) HIV (human immunodeficiency virus infection) Assessment/Plan: Non complint last CD4 352 Code(s): B20 - HUMAN IMMUNODEFICIENCY VIRUS [HIV] DISEASE (3) Asthma Assessment/Plan: Cont current meds Code(s): J45.909 - UNSPECIFIED ASTHMA, UNCOMPLICATED (4) Bipolar disorder Assessment/Plan: Resume home meds Code(s): F31.9 - BIPOLAR DISORDER, UNSPECIFIED (5) Substance abuse Assessment/Plan: PSA active cocaine and ETOH observe closely for DTs add Thiamine Folic acid Code(s): F19.10 - OTHER PSYCHOACTIVE SUBSTANCE ABUSE, UNCOMPLICATED
[2019-03-13] MEDS: SERTRALINE HCL 50 MG TABLET (FP) PO SCH (08:24)
[2019-03-13 08:57] LABS: BASO % 0.7 % (0-2.0); EOS % 2.6 % (0-4.5); HEMATOCRIT 42.5 % (35.4-49); HEMOGLOBIN 14.7 GM/dL (11.7-16.9); LYMPH % 36.8 % (8-40); MCH 29.9 pg (25.7-33.7); MCHC 34.5 g/dl (32.0-35.9); MEAN CELL VOLUME 86.6 fl (80-96); MEAN PLT VOLUME 7.5 fl (7.5-11.1); NEUT % 51.9 % (42.8-82.8); PLATELET COUNT 317 K/MM3 (134-434); RBC 4.91 M/mm3 (4.00-5.60); RDW 12.5 % (11.9-15.9); WHITE BLOOD COUNT 5.6 K/mm3 (4.0-10.0)
--- NOTE | 2019-03-13 09:37 | CON.ORTH ---
Consult Reason for Consultation:: left elbow infection - Alcohol/Substance Use Hx Alcohol Use: Yes - Smoking History Smoking history: Current every day smoker Have you smoked in the past 12 months: Yes Aproximately how many cigarettes per day: 12 If you are a former smoker, when did you quit?: 2014 Home Medications - Allergies Allergies/Adverse Reactions: Allergies Allergy/AdvReac Type Severity Reaction Status Date / Time codeine [Codeine] AdvReac Verified 03/11/19 11:45 Penicillins AdvReac Verified 03/11/19 11:45 - Home Medications Home Medications: Ambulatory Orders Loratadine [Claritin] 10 mg PO DAILY 10/04/11 Albuterol Sulfate Inhaler - [Ventolin HFA Inhaler -] 1 - 2 inh PO Q6H PRN #1 inhaler 11/27/18 Bictegrav/Emtricit/Tenofov Ala [Biktarvy 50-200-25 mg Tablet] 1 tab PO DAILY # 30 tablet 11/27/18 Pravastatin Sodium 1 tab PO DAILY #30 tablet 11/27/18 Umeclidinium [place] [Incruse Ellipta] 62.5 mcg IH DAILY #1 blst.w.dev 11/27/18 Asenapine Maleate [Saphris] 10 mg SL HS #30 tab.subl 02/19/19 Benztropine Mesylate [Cogentin -] 0.5 mg PO DAILY #30 tablet 02/19/19 Sertraline HCl 100 mg PO AM #60 tablet MDD 2 02/19/19 Zolpidem Tartrate [Ambien] 10 tab PO HS PRN #15 tablet MDD 1 02/19/19 clonazePAM [Klonopin -] 0.5 mg PO BID PRN #20 tablet MDD 1 02/19/19 Family Disease History - Family Disease History Family Disease History: Heart Disease: Mother (dec'd cva), CA: Father (dec'd lung ca), Other: Mother Physical Exam for Ortho Vital Signs: Vital Signs Temperature 98.2 F 03/13/19 06:00 Pulse Rate 96 H 03/13/19 06:00 Respiratory Rate 20 03/13/19 06:00 Blood Pressure 133/95 03/13/19 06:00 O2 Sat by Pulse Oximetry (%) 98 03/12/19 21:00 Labs: CBC, BMP 03/13/19 08:28 03/12/19 06:25 - Upper Extremity Elbow: Yes: Left, Erythema, Pain, Swelling, Tenderness, Other (1x2 cm ulceration , no active drainage, no pus, + swelling, + erythema, ROM 5-140, nvi) Imaging - Results X-ray: Report Reviewed, Image Reviewed Assessment/Plan 48 y/o male with PMH of HIV (last cd4 352 hasnt take his HAART medications in 3 weeks), asthma, COPD, extensive cocaine and alcohol abuse presents to the ED with complaints of LUE swelling and pain- patient states that he scraped his elbow about 3-4 weeks ago and then hit it 2 weeks ago and since then has been having off and on pain with swelling in addition to subjective fevers and chills. Patient states that he went to [facility] about a week and a half ago where he got a dose of IV abx (doesn't know which type) but left AMA before being admitted; he then went to the [facility] and they did an I and D two days ago- however he went back today because he was still having some subjective fevers and chills and he was sent here; he denies any nausea/vomiting /diarrhea no sick contacts or recent travel. a/p left elbow abscess/cellulitis s/p I&D-- improving No surgical intervention at this time Abx as per ID ROM exercises warm soaks wound care d/w Dr. Gamboa
[2019-03-13] MEDS ORDERED: PT OWN MED DRAWER 7, Y5N ONE (10:24)
[2019-03-13] MEDS: LORATADINE 10 MG TABLET PO SCH (10:34)
[2019-03-13] MEDS: clonazePAM 0.5 MG TABLET PO PRN (10:34)
[2019-03-13] MEDS: BENZTROPINE MESYLATE 0.5 MG TABLET (FP) PO SCH (10:35)
[2019-03-13] MEDS: TIOTROPIUM BROMIDE 2.5 MCG (SPIRIVA) RESPIMAT INHALER IH SCH (10:36)
[2019-03-13 11:14] VITALS: BP 125/86; PULSE 87
--- NOTE | 2019-03-13 18:50 | DS ---
Physical Exam: SUBJECTIVE: Patient refused exam. OBJECTIVE: Vital Signs Period Temp Pulse Resp BP Sys/Cross Pulse Ox Last 24 Hr 98.2 F-98.9 F 87-97 18-20 125-133/76-95 98-98 PHYSICAL EXAM LABS Laboratory Results - last 24 hr 03/12/19 03/13/19 18:30 08:28 WBC 5.6 RBC 4.91 Hgb 14.7 Hct 42.5 MCV 86.6 MCH 29.9 MCHC 34.5 RDW 12.5 Plt Count 317 MPV 7.5 Absolute Neuts (auto) 2.9 Neutrophils % 51.9 Lymphocytes % 36.8 D Monocytes % 8.0 Eosinophils % 2.6 Basophils % 0.7 Nucleated RBC % 0 Opiates Screen Negative Methadone Screen Negative Barbiturate Screen Negative Phencyclidine Screen Negative Ur Amphetamines Screen Negative MDMA (Ecstasy) Screen Negative Benzodiazepines Screen Negative Cocaine Screen Positive A* U Marijuana (THC) Screen Positive A* HOSPITAL COURSE: Date of Admission:03/11/19 This is a 48 y/o M with a PMH of polysubstance abuse, HIV (cd4 352-recently stopped meds, resumed recently) seen in ER twice at [facility], after an Incision and Drainage who was admitted for left elbow cellulitis. He had an XR of his left elbow and it showed moderate soft tissue swelling posteriorly consistent with cellulitis. We treated him with IV vanco 1500mg and once stable we d/c him on 300mg clindamycin TID for 1 week. Date of Discharge: 03/13/19 Minutes to complete discharge: 35 Discharge Summary Reason For Visit: CELLULITIS OF LEFT UPPER EXTEREMITY,NON HEALING WO Current Active Problems AIDS (Chronic) Alcohol use (Chronic) Asthma (Chronic) Cocaine use disorder (Chronic) Mental health disorder (Chronic) Condition: Improved - Instructions Diet, Activity, Other Instructions: You were admitted for having left elbow swelling found to have cellulitis (skin infection). We treated you with intravenous antibiotics and you are now stable. We are sending you home on antibiotics by mouth. Medication to take home: Clindamycin 300mg three times a day for 7 days, ending 03/20/19. You should follow up with your primary doctor at the [facility] in 1 week. You should return to the emergency room if you have worsening of your current symptoms or: chest pain, shortness of breath, fevers, or chills. Please continue all other medications as prescribed. Disposition: HOME - Home Medications Comprehensive Discharge Medication List: Ambulatory Orders Loratadine [Claritin] 10 mg PO DAILY 10/04/11 Albuterol Sulfate Inhaler - [Ventolin HFA Inhaler -] 1 - 2 inh PO Q6H PRN #1 inhaler 11/27/18 Bictegrav/Emtricit/Tenofov Ala [Biktarvy 50-200-25 mg Tablet] 1 tab PO DAILY # 30 tablet 11/27/18 Pravastatin Sodium 1 tab PO DAILY #30 tablet 11/27/18 Umeclidinium [place] [Incruse Ellipta] 62.5 mcg IH DAILY #1 blst.w.dev 11/27/18 Asenapine Maleate [Saphris] 10 mg SL HS #30 tab.subl 02/19/19 Benztropine Mesylate [Cogentin -] 0.5 mg PO DAILY #30 tablet 02/19/19 Sertraline HCl 100 mg PO AM #60 tablet MDD 2 02/19/19 Zolpidem Tartrate [Ambien] 10 tab PO HS PRN #15 tablet MDD 1 02/19/19 clonazePAM [Klonopin -] 0.5 mg PO BID PRN #20 tablet MDD 1 02/19/19 Clindamycin [Cleocin -] 300 mg PO TID #21 capsule 03/13/19 This patient is new to me today: No Emergency Visit: Yes ED Registration Date: 03/11/19 Care time: The patient presented to the Emergency Department on the above date and was hospitalized for further evaluation of their emergent condition. Critical Care patient: No - Discharge Referral Referred to [facility] Med P.C.: No ATTENDING PHYSICIAN STATEMENT I saw and evaluated the patient. I reviewed the resident's note and discussed the case with the resident. I agree with the resident's findings and plan as documented. SUBJECTIVE: OBJECTIVE: ASSESSMENT AND PLAN:
== END 2019-03-13 12:00 | disposition home or self-care (01) | DRG 894 ==
LOC: JER 11:38 → JERBED 16:15 → J5S 18:01
PROVIDERS: ATTEND Internal Medicine
DX: L03.114 Cellulitis of left upper limb (principal); B20 Human immunodeficiency virus [HIV] disease; F17.210 Nicotine dependence, cigarettes, uncomplicated; J44.9 Chronic obstructive pulmonary disease, unspecified; F10.10 Alcohol abuse, uncomplicated; F14.10 Cocaine abuse, uncomplicated; E78.5 Hyperlipidemia, unspecified; F31.9 Bipolar disorder, unspecified; Z88.0 Allergy status to penicillin; Z91.14 Patient's other noncompliance with medication regimen
CPT/HCPCS: 36415; 71045-TC-FY; 73070-TC-LT-FY; 80053; 80307; 83735; 85025; 87040; 93005; 93010; 99284-25; J1644

== ENCOUNTER → 2019-04-01 | Outpatient (CLI) | payer OTHER | LOC: YHH 14:02 ==